=== PATIENT | male | born 1955 | race Caucasian/White ===

== ENCOUNTER 2017-10-06 09:35 | Inpatient (IN) | payer BC ==
[2017-10-06] MEDS: SOD CHLORIDE 0.9% 500 ML IV (09:43)
[2017-10-06 11:05] LABS: ADD MAN DIFF? NO
[2017-10-06 11:08] LABS: WHITE BLOOD COUNT 5.3 10^3/ul (4.8-10.8)
[2017-10-06 11:08] LABS: ABNORMAL IP MESSAGE 1; BASOPHILS % 0.6 % (0.0-2.0); EOSINOPHILS # 0.1 10^3/ul (0.0-0.5); EOSINOPHILS % 1.5 % (0.0-7.0); HEMATOCRIT 31.2 % (42.0-52.0); HEMOGLOBIN 11.1 g/dl (14.0-18.0); LYMPHOCYTES # 0.4 10^3/ul (0.8-2.9); LYMPHOCYTES % 7.2 % (15.0-51.0); MEAN CORPUSCULAR HEMOGLOBIN 38.8 pg (29.0-33.0); MEAN CORPUSCULAR HGB CONC 35.6 g/dl (32.0-37.0); MEAN CORPUSCULAR VOLUME 109.1 fl (82.0-101.0); MEAN PLATELET VOLUME 10.6 fl (7.4-10.4); MONOCYTE # 0.4 10^3/ul (0.3-0.9); MONOCYTES % 8.3 % (0.0-11.0); NEUTROPHIL # 4.4 10^3/ul (1.6-7.5); NEUTROPHILS % 82.2 % (39.0-77.0); POSITIVE DIFF @See below; RED BLOOD COUNT 2.86 10^6/ul (4.70-6.10); RED CELL DISTRIBUTION WIDTH 16.7 % (11.5-14.5)
[2017-10-06 11:13] LABS: PLATELET COUNT 27 10^3/UL (140-415)
[2017-10-06 11:38] LABS: ALANINE AMINOTRANSFERASE 60 IU/L (13-69); ALBUMIN 3.2 g/dl (3.3-4.9); ALBUMIN/GLOBULIN RATIO 0.78; ALKALINE PHOSPHATASE 123 IU/L (42-121); ANION GAP 17 (8-16); ASPARTATE AMINO TRANSFERASE 79 IU/L (15-46); BILIRUBIN,INDIRECT 6.4 mg/dl (0-1.1); BILIRUBIN,TOTAL 7.5 mg/dl (0.2-1.3); BLOOD UREA NITROGEN 26 mg/dl (7-20); CALCIUM 8.7 mg/dl (8.4-10.2); CARBON DIOXIDE 17 mmol/L (21-31); CHLORIDE 99 mmol/L (97-110); CREATININE 0.87 mg/dl (0.61-1.24); GLUCOSE 113 mg/dl (70-220); LIPASE 119 U/L (23-300); POTASSIUM 5.2 mmol/L (3.5-5.1); SODIUM 128 mmol/L (135-144); TOTAL PROTEIN 7.3 g/dl (6.1-8.1)
[2017-10-06 11:45] LABS: TROPONIN-I < 0.012 ng/ml (0.00-0.12)
[2017-10-06] MEDS: LACTULOSE 30ML CUP NGT ×2 (11:45→18:00)
[2017-10-06 11:57] LABS: AMMONIA 37 umol/l (9-30)
[2017-10-06 11:59] LABS: INR 2.06; PROTIME 23.7 Sec (11.9-14.9); PT RATIO 1.9
[2017-10-06 12:16] LABS: ADD UMIC YES; UR ASCORBIC ACID NEGATIVE (NEGATIVE); UR BILIRUBIN (Dip) NEGATIVE (NEGATIVE); UR BLOOD (Dip) 2+ mg/dL (NEGATIVE); UR CLARITY CLEAR (CLEAR); UR COLOR AMBER (YELLOW); UR GLUCOSE (Dip) NEGATIVE (NEGATIVE); UR KETONES (Dip) NEGATIVE (NEGATIVE); UR LEUKOCYTE ESTERASE (Dip) NEGATIVE Leu/ul (NEGATIVE); UR NITRITE (Dip) NEGATIVE (NEGATIVE); UR RBC 4 /HPF (0-5); UR SPECIFIC GRAVITY (Dip) 1.018 (1.003-1.030); UR TOTAL PROTEIN (Dip) NEGATIVE (NEGATIVE); UR UROBILINOGEN (Dip) 2+ mg/dL (NEGATIVE); UR WBC 1 /HPF (0-5)
[2017-10-06] MEDS ORDERED: ONDANSETRON 4 MG INJ IV (16:00)
[2017-10-06] MEDS ORDERED: ACETAMINOPHEN 325 MG TAB PO (16:00)
[2017-10-06 16:57] LABS: TYPE AND SCREEN 1 1
[2017-10-06] MEDS: PANTOPRAZOLE 40 MG INJ IV (17:44)
[2017-10-06] MEDS: RIFAXIMIN 550 MG TAB PO (21:27)
[2017-10-07] MEDS: LACTULOSE 30ML CUP NGT ×5 (00:22→23:47)
[2017-10-07] MEDS: PANTOPRAZOLE 40 MG INJ IV (05:42)
[2017-10-07] MEDS: NADOLOL 40 MG TAB PO (08:27)
[2017-10-07] MEDS: MULTIVITAMINS/MINERALS TAB PO (08:27)
[2017-10-07] MEDS: RIFAXIMIN 550 MG TAB PO ×2 (08:27→20:47)
[2017-10-07] MEDS: FUROSEMIDE 20 MG INJ IV (08:28)
[2017-10-07] MEDS: DEXTROSE 5%-0.45% NACL 1,000 ML IV (12:46)
[2017-10-08 04:53] LABS: ADD MAN DIFF? NO
[2017-10-08 05:06] LABS: WHITE BLOOD COUNT 3.3 10^3/ul (4.8-10.8)
[2017-10-08 05:06] LABS: ABNORMAL IP MESSAGE 1; BASOPHILS % 0.9 % (0.0-2.0); EOSINOPHILS # 0.2 10^3/ul (0.0-0.5); EOSINOPHILS % 4.6 % (0.0-7.0); HEMATOCRIT 24.7 % (42.0-52.0); HEMOGLOBIN 8.5 g/dl (14.0-18.0); LYMPHOCYTES # 0.4 10^3/ul (0.8-2.9); LYMPHOCYTES % 13.5 % (15.0-51.0); MEAN CORPUSCULAR HEMOGLOBIN 37.9 pg (29.0-33.0); MEAN CORPUSCULAR HGB CONC 34.4 g/dl (32.0-37.0); MEAN CORPUSCULAR VOLUME 110.3 fl (82.0-101.0); MONOCYTE # 0.5 10^3/ul (0.3-0.9); MONOCYTES % 13.8 % (0.0-11.0); NEUTROPHIL # 2.2 10^3/ul (1.6-7.5); NEUTROPHILS % 66.9 % (39.0-77.0); POSITIVE DIFF @See below; RED BLOOD COUNT 2.24 10^6/ul (4.70-6.10); RED CELL DISTRIBUTION WIDTH 16.5 % (11.5-14.5)
[2017-10-08 05:17] LABS: PLATELET COUNT 30 10^3/UL (140-415)
[2017-10-08 05:19] LABS: AMMONIA 32 umol/l (9-30)
[2017-10-08 05:24] LABS: ALANINE AMINOTRANSFERASE 46 IU/L (13-69); ALBUMIN 2.1 g/dl (3.3-4.9); ALBUMIN/GLOBULIN RATIO 0.65; ALKALINE PHOSPHATASE 89 IU/L (42-121); ANION GAP 13 (8-16); ASPARTATE AMINO TRANSFERASE 57 IU/L (15-46); BILIRUBIN,INDIRECT 3.7 mg/dl (0-1.1); BLOOD UREA NITROGEN 25 mg/dl (7-20); CARBON DIOXIDE 22 mmol/L (21-31); CHLORIDE 104 mmol/L (97-110); CREATININE 0.81 mg/dl (0.61-1.24); GLUCOSE 125 mg/dl (70-220); MAGNESIUM 1.5 mg/dl (1.7-2.5); POTASSIUM 4.6 mmol/L (3.5-5.1); SODIUM 134 mmol/L (135-144); TOTAL PROTEIN 5.3 g/dl (6.1-8.1)
[2017-10-08] MEDS: LACTULOSE 30ML CUP NGT ×3 (05:36→17:18)
[2017-10-08] MEDS: PANTOPRAZOLE 40 MG INJ IV (05:36)
[2017-10-08] MEDS: NADOLOL 40 MG TAB PO (08:42)
[2017-10-08] MEDS: MULTIVITAMINS/MINERALS TAB PO (08:42)
[2017-10-08] MEDS: FUROSEMIDE 20 MG INJ IV (08:42)
[2017-10-08] MEDS: RIFAXIMIN 550 MG TAB PO ×2 (08:42→21:25)
[2017-10-08] MEDS: DEXTROSE 5%-0.45% NACL 1,000 ML IV (08:49)
[2017-10-09] MEDS: LACTULOSE 30ML CUP NGT ×2 (00:30→05:52)
[2017-10-09] MEDS: DEXTROSE 5%-0.45% NACL 1,000 ML IV (04:17)
[2017-10-09 05:50] LABS: ADD MAN DIFF? NO
[2017-10-09] MEDS: PANTOPRAZOLE 40 MG INJ IV (05:52)
[2017-10-09 05:57] LABS: WHITE BLOOD COUNT 2.7 10^3/ul (4.8-10.8)
[2017-10-09 05:57] LABS: ABNORMAL IP MESSAGE 1; BASOPHILS % 1.1 % (0.0-2.0); EOSINOPHILS # 0.2 10^3/ul (0.0-0.5); EOSINOPHILS % 5.6 % (0.0-7.0); HEMATOCRIT 23.3 % (42.0-52.0); HEMOGLOBIN 8.2 g/dl (14.0-18.0); LYMPHOCYTES # 0.5 10^3/ul (0.8-2.9); LYMPHOCYTES % 20.2 % (15.0-51.0); MEAN CORPUSCULAR HEMOGLOBIN 38.7 pg (29.0-33.0); MEAN CORPUSCULAR HGB CONC 35.2 g/dl (32.0-37.0); MEAN CORPUSCULAR VOLUME 109.9 fl (82.0-101.0); MEAN PLATELET VOLUME 10.8 fl (7.4-10.4); MONOCYTE # 0.4 10^3/ul (0.3-0.9); MONOCYTES % 13.9 % (0.0-11.0); NEUTROPHIL # 1.6 10^3/ul (1.6-7.5); NEUTROPHILS % 58.8 % (39.0-77.0); POSITIVE DIFF @See below; RED BLOOD COUNT 2.12 10^6/ul (4.70-6.10); RED CELL DISTRIBUTION WIDTH 16.5 % (11.5-14.5)
[2017-10-09 06:18] LABS: PLATELET COUNT 27 10^3/UL (140-415)
[2017-10-09 06:25] LABS: ALANINE AMINOTRANSFERASE 51 IU/L (13-69); ALKALINE PHOSPHATASE 90 IU/L (42-121); ANION GAP 9 (8-16); ASPARTATE AMINO TRANSFERASE 65 IU/L (15-46); BILIRUBIN,INDIRECT 2.6 mg/dl (0-1.1); BILIRUBIN,TOTAL 2.6 mg/dl (0.2-1.3); BLOOD UREA NITROGEN 23 mg/dl (7-20); CALCIUM 7.9 mg/dl (8.4-10.2); CARBON DIOXIDE 21 mmol/L (21-31); CHLORIDE 103 mmol/L (97-110); CREATININE 0.78 mg/dl (0.61-1.24); GLUCOSE 122 mg/dl (70-220); MAGNESIUM 1.7 mg/dl (1.7-2.5); POTASSIUM 4.3 mmol/L (3.5-5.1); SODIUM 129 mmol/L (135-144); TOTAL PROTEIN 5.3 g/dl (6.1-8.1)
[2017-10-09] MEDS: RIFAXIMIN 550 MG TAB PO (10:27)
[2017-10-09] MEDS: NADOLOL 40 MG TAB PO (10:28)
[2017-10-09] MEDS: FUROSEMIDE 20 MG INJ IV (10:28)
[2017-10-09] MEDS: MULTIVITAMINS/MINERALS TAB PO (10:28)
== END 2017-10-09 11:30 | disposition home or self-care (01) | DRG 442 ==
LOC: E/R 09:35 → PP2 15:39
PROC: 30233R1 Transfusion of Nonautologous Platelets into Peripheral Vein, Percutaneous Approach (ICD-10-PCS; principal; 2017-10-06)
DX: K72.00 Acute and subacute hepatic failure without coma (principal); D68.4 Acquired coagulation factor deficiency; D69.6 Thrombocytopenia, unspecified; E87.5 Hyperkalemia; E87.1 Hypo-osmolality and hyponatremia; B19.20 Unspecified viral hepatitis C without hepatic coma; N18.9 Chronic kidney disease, unspecified; E80.6 Other disorders of bilirubin metabolism; K43.9 Ventral hernia without obstruction or gangrene
CPT/HCPCS: 36430; 70450; 71045; 80053; 81001; 82140; 83690; 83735; 84484; 85025; 85610; 86850; 86900; 86901; 87040; 87086; 93005; 96374; 97162; 99291-25; J1940